=== PATIENT | male | born 1990 | race Caucasian/White ===

== ENCOUNTER 2017-07-18 13:42 | Emergency (ER) | payer SELFPAY ==
[~2017-07-18] VITALS: Ht 172.7 cm; Wt 70.3 kg
[2017-07-18 13:42] VITALS: BP 131/86
[2017-07-18] MEDS ORDERED: HYDROCODONE/APAP 5/325MG 1 EACH TABLET PO ONE (15:00)
[2017-07-18] MEDS ORDERED: KETOROLAC TROMETHAMINE INJ 60 MG/2 ML VIAL IM ONE (15:00)
[2017-07-18] MEDS ORDERED: KETOROLAC TROMETHAMINE INJ 30 MG/ML VIAL ONE (15:11)
[2017-07-18] MEDS ORDERED: HYDROCODONE/APAP 5/325MG 1 EACH TABLET ONE (15:11)
== END 2017-07-18 15:26 | disposition home or self-care (01) ==
LOC: ER 13:47
DX: M54.2 Cervicalgia (principal)
CPT/HCPCS: 96372; 99283; A4606; J1885; Z7610

== ENCOUNTER 2018-08-23 20:36 | Emergency (ER) | payer OTHER ==
[~2018-08-23] VITALS: Ht 172.7 cm; Wt 70.3 kg
[2018-08-23 20:48] VITALS: BP 147/86
--- NOTE | 2018-08-23 20:50 | NUR ---
PATIENT IN ROOM 18, AMBULATORY, STABLE, WITH C/C OF LEFT EYE PAIN. STATES "FEELS LIKE A POKE" AND "THINKS AN EYE LASH IS GROWING." VSS, AWAITING EVAL FROM PROVIDER
[2018-08-23] MEDS ORDERED: FLUORESCEIN SODIUM OPHTH 1 EA STRIP ONE (21:04)
[2018-08-23] MEDS ORDERED: TETRACAINE HCL/PF 0.5% UD 2 ML BOTTLE ONE (21:04)
== END 2018-08-23 21:33 | disposition home or self-care (01) ==
LOC: ER 20:37
DX: H57.89 Other specified disorders of eye and adnexa (principal)
CPT/HCPCS: 99283; A4606; Z7610

== ENCOUNTER 2019-04-14 01:06 | Emergency (ER) | payer OTHER ==
[~2019-04-14] VITALS: Ht 172.7 cm; Wt 70.3 kg
--- NOTE | 2019-04-14 01:32 | NUR ---
EVON SHEIKH AT BEDSIDE TO LASHON ACUNA.
[2019-04-14] MEDS ORDERED: ALPRAZOLAM 0.25 MG TABLET ONE (01:43)
--- NOTE | 2019-04-14 01:46 | NUR ---
PT MEDICATED ORDERED.
[2019-04-14 01:59] LABS: BASOPHILS % (AUTO) 0.4 % (0.0-2.0); EOSINOPHILS % (AUTO) 1.9 % (0.0-6.0); HEMATOCRIT 42 % (39-51); HEMOGLOBIN 14.1 g/dL (13.5-17.5); LYMPHOCYTES # (AUTO) 2.3 /CMM (0.8-4.8); LYMPHOCYTES % (AUTO) 34.9 % (20.0-44.0); MEAN CORPUSCULAR HGB CONC 34 g/dl (31.0-36.0); MEAN CORPUSCULAR VOLUME 91 fL (80-96); MONOCYTES # (AUTO) 0.6 /CMM (0.1-1.30); MONOCYTES % (AUTO) 9.2 % (2.0-12.0); NEUTROPHILS # (AUTO) 3.5 /CMM (1.8-8.9); NEUTROPHILS % (AUTO) 53.6 % (43.0-81.0); PLATELET COUNT (AUTO) 195 /CMM (150-450); WHITE BLOOD COUNT (AUTO) 6.6 K/uL (4.3-11.0)
[2019-04-14] MEDS ORDERED: ALPRAZOLAM 0.25 MG TABLET PO ONE (02:00)
[2019-04-14 02:05] LABS: CALCIUM, SERUM 8.6 mg/dL (8.5-10.1); POTASSIUM 3.3 mmol/L (3.5-5.1)
[2019-04-14] MEDS ORDERED: POTASSIUM CHLORIDE 20 MEQ TAB.PRT.SR PO ONE ×2 (02:30→02:43)
--- NOTE | 2019-04-14 02:44 | NUR ---
Patient discharged to home in stable condition. Written and verbal after care instructions given. Patient verbalizes understanding of instruction. ambulatory with a steady gait noted. advice pt not to drive or oeprate any machinery due to pt was given xanax. pt verbalize understanding.
[2019-04-14 02:47] VITALS: BP 123/65
== END 2019-04-14 02:47 | disposition home or self-care (01) ==
LOC: ER 01:09
DX: F41.9 Anxiety disorder, unspecified (principal); E87.6 Hypokalemia; Z60.2 Problems related to living alone
CPT/HCPCS: 36415; 80048-TC; 84484-TC; 85025-TC

== ENCOUNTER 2020-04-25 10:48 | Emergency (ER) | payer OTHER ==
[~2020-04-25] VITALS: Ht 172.7 cm; Wt 70.3 kg
[2020-04-25 11:01] VITALS: BP 118/73
[2020-04-25] MEDS ORDERED: TDAP [DIPH/PERTUSSIS/TET] 0.5 ML VIAL IM ONE ×2 (11:30→11:32)
[2020-04-25] MEDS ORDERED: BACITRACIN ZINC OINT PACKET 1 EA PACKET TP ONE (11:30)
== END 2020-04-25 11:51 | disposition home or self-care (01) ==
LOC: ER 10:51
DX: S51.832A Puncture wound without foreign body of left forearm, initial encounter (principal); Z60.2 Problems related to living alone; W54.0XXA Bitten by dog, initial encounter; Y93.01 Activity, walking, marching and hiking; Y92.89 Other specified places as the place of occurrence of the external cause; Y99.8 Other external cause status
CPT/HCPCS: 90715